=== PATIENT | female | born 1980 | race Caucasian/White ===

== ENCOUNTER 2017-07-13 13:46 | Emergency (ER) | payer MEDICARE, MEDICAID ==
[2017-07-13] MEDS ORDERED: Sodium Chloride 0.9% 10 ML Syringe FLUSH PRN (14:52)
[2017-07-13] MEDS ORDERED: Sodium Chloride 0.9% 1,000 ML IV ONE (14:57)
[2017-07-13] MEDS ORDERED: Iopamidol 755 Mg/ML 100 ML Bottle IV ONE (15:27)
[2017-07-13 19:02] VITALS: BP 125/80
--- NOTE | 2017-07-17 13:38 | ER ---
DATE SEEN: 07/13/2017 TIME SEEN: The patient was seen at 1425 hours. HISTORY OF PRESENT ILLNESS: She started Septra on 07/10/2017, for a kidney infection. She has been sick on and off for the last few weeks for a urinary tract infection. Used [id number] medicines which did not help her. She now notes she has 5/10 discomfort. She feels that the symptoms are worse having used Septra. She denies fever. She has mild flank discomfort bilaterally. She is a 3, para 3-0-0-3. PREVIOUS SURGERIES: Appendectomy, cholecystectomy, C-sections, hysterectomy with 1 oophorectomy, neck surgery had disk disease, umbilical hernia surgery without mesh. SOCIAL HISTORY: She smoked half a pack a day for 9 years and mild chronic obstructive lung disease. Denies alcohol or illicit drugs. REVIEW OF SYSTEMS: Otherwise negative. ALLERGIES: Codeine, cephalexin, cortisone. The patient denies any nausea, vomiting, lip swelling, shortness of breath, coughing, chest pain, irregular heartbeat, diaphoresis after having taken the TMP/SMX (Septra). She actually noticed she had a headache. Her ears ached worse, mild congestion in her ears, eustachian tube discomfort/ear discomfort, after she took the medicine. She felt slight fullness in her face. PHYSICAL EXAMINATION: VITAL SIGNS: Blood pressure 123/85, heart rate 86, respirations 14, oxygen saturation 100%. HEENT: TMs, mild dullness. No retraction. Pharynx without erythema. Turbinates not enlarged. No shiners noted. NECK: Supple. No cervical adenopathy. LUNGS: Clear to auscultation. HEART: S1, S2. No murmur. ABDOMEN: Soft. No guarding. No abdominal discomfort. Bowel sounds present. No CVA percussion tenderness. EXTREMITIES: Without abnormality. SKIN: No rash noted. Per [facility] article in the last 3 months, summary regarding penicillin allergies, it is noted that the patient can have Jarisch-Herxheimer reactions from the medications that are not particularly allergic reaction, but the patient feels markedly worse. It can happen with sulfa drugs. ASSESSMENT/PLAN: 1. 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 Discontinue the sulfa. Start Cipro 1 tablet b.i.d. 500 mg for 3 days. 2. No evidence for pyelonephritis. 3. History of cholecystectomy, appendectomy, C-sections, hysterectomy with 1 oophorectomy, neck surgery, and umbilical hernia repair without mesh surgery. 4. Smokes half a pack a day, 9-pack-year smoking total. /[id number] LS/MODL ADDENDUM: Because of the patient's bizarre symptoms, we thought that perhaps she might have renal stones because she had flank pain. CAT scan of the abdomen was performed and it was unremarkable. No abnormalities demonstrated. OTHER LABORATORY FINDINGS: White count 10,400, PMNs 74, lymphocytes 20, hemoglobin 15.6, the latter slightly increased probably secondary to smoking. Complete metabolic panel normal except for sodium low at 133, etiology is indeterminate unless she restricts her salt diet, but I did not ask her about this. Potassium 4.1, chloride 103, bicarb 21, BUN/creatinine ratio 18.8, creatinine 0.8, and BUN 15. C-reactive protein mild elevation at 1.3. Urine, moderate bacteria. ASSESSMENT: Urinary tract infection. /[id number] LS/MODL
== END 2017-07-13 19:00 | disposition home or self-care (01) ==
LOC: FB.ED 13:46
DX: N39.0 Urinary tract infection, site not specified (principal); F17.210 Nicotine dependence, cigarettes, uncomplicated; Z90.49 Acquired absence of other specified parts of digestive tract; Z90.710 Acquired absence of both cervix and uterus; Z88.8 Allergy status to other drugs, medicaments and biological substances; Z88.5 Allergy status to narcotic agent
CPT/HCPCS: 36415; 74177; 80053; 81001; 85025; 86140; 87040; 87086; 96360; 99284; J7040; J7050; Q9967; 99283

== ENCOUNTER 2017-12-17 11:18 | Emergency (ER) | payer MEDICARE, MEDICAID ==
[2017-12-17] MEDS ORDERED: HYDROmorphone 2 MG/ML SDV IM ONE (11:42)
[2017-12-17] MEDS ORDERED: Ondansetron 8 MG Tab.DIS PO ONE (11:42)
[2017-12-17] MEDS ORDERED: Ketorolac 30 MG/ML SDV IM ONE (11:51)
[2017-12-17] MEDS ORDERED: diphenhydrAMINE 50 MG Cap PO ONE (11:52)
[2017-12-17 20:18] VITALS: BP 106/61
--- NOTE | 2017-12-20 09:51 | ER ---
DATE SEEN: 12/17/2017 HISTORY OF PRESENT ILLNESS: This 37-year-old woman has chronic low back pain, had onset of back pain in October, was noted to have MRI with a "L5-S1" abnormality (On review of the new data, it was L4-L5 - the patient was mistaken, it was L4- L5 level). She had a herniated disk and was to see Dr. Aggarwal on 12/25/2017 for consideration of possible surgical treatment. She has seen Dr. Aggarwal in the past. Today, the back pain came on at 0600 hours, and it was so bad she had to crawl to the bathroom. She could not walk because it was so painful. " It is excruciating,"... 08/13 pain. She noted that she spontaneously experienced a herniated disk 6 months ago. There was no unusual activity or event that precipitated the back pain now. She notes also, in the last several months, she has had progressive decrease of control in her bladder. She has had urgency today. She had been seen in October in the [place] ER. An MRI was performed, and she had a herniated disk at L4-L5 level. She was referred to the [facility] and she has appointment to see Dr. Aggarwal on 12/25/2017 for consideration of back surgery. She is overweight, 84.82 kg. PREVIOUS SURGERY: , full-term infant. ALLERGIES: Codeine, Keflex, and cortisone. CURRENT MEDICATIONS: 1. Gabapentin 100 mg t.i.d. 2. Atarax 50 q.i.d. 3. Pramipexole (Mirapex for restless legs) 0.25 mg at bedtime. REVIEW OF SYSTEMS: Negative, except for noted regarding back pain and overweight. No change in her urinary incontinence. She has occasional leaking of urine, but only with stress incontinence. PHYSICAL EXAMINATION: VITAL SIGNS: Blood pressure 129/67, heart rate 92, respirations 18, oxygen saturation 99%, and temperature is 36.9 degrees centigrade. GENERAL: This overweight woman is in extreme pain. She is lying on her side in a position, and she is groaning, she does not want to move, as she is having too much pain to even get up and even sit up. HEENT: PERRLA intact. She has good response of pupils. TMs negative. Pharynx without abnormality. NECK: No thyromegaly or masses in the neck. No cervical adenopathy. LUNGS: Clear without rales, rhonchi, or wheezes. HEART: S1, S2. No murmur. No irregular rate and rhythm. ABDOMEN: Soft. No guarding. No abdominal discomfort. She has marked increased abdominal girth. No CVA percussion tenderness. She has marked pain in lumbar through sacral area. No scars noted. EXTREMITIES: Straight leg raise not even possible because of severe pain. Any movement of the legs will cause severe pain, more notable on the left side compared to the right side. She notes she has more right pain now than she had before, that is new. IMAGING DATA: MRI was obtained and demonstrated no change from the previously documented L4-L5 left-sided disk herniation. She has facet degeneration, hypertrophic changes at L4-L5. Otherwise, she has minor facet changes at L3-L4, and there is intervertebral disk loss L2-L3 and L1-L2. Mild neural foraminal narrowing at L2-L3. EMERGENCY ROOM COURSE: The patient's status was discussed with Dr. Lao, the neurosurgeon at [facility], and he relates, as long she can walk and her only problem is pain, that he would not entertain any emergent neurosurgery intervention; however, he noted when patients have weakness, it does become emergency. Presently she does not have any weakness. He stated he likes to see the patient in close proximity to onset of the back pain, so the patient can have arrangements for pain therapy. Since he, Dr Thomason, is a [facility], and is not available for clinical followups. Consequently, I spoke to the staff and Harry, the assistant clinical director, made arrangements for the patient to get into the clinic earlier - in [address] Jc. Harry was very gracious to make this arrangement for Rhea. Rhea is gratified. She is dismissed with Percocet 7.5/325 mg 1 tablet q.4 hours p.r.n. pain. Rhea was planning to have some admission and/or surgical intervention today. I have advised her that probably we would not admit her unless we had other signs that warrant, and perhaps if she had those sign, she would be transferred to [place]. Rhea was advise she did not have the signs to warrant admission. She did have normal reflexes. No sensory losses to lower extremities, no weakness in lower extremities. She is able to walk with difficulty and ataxia. To reiterate back exam, she has marked pain in the lumbar area. Any motion of leg causes pain. She is able to stand with marked difficulty, after she had pain medicine. She did not fall. She used a walker. She says she has a walker at home. She has good strength in the lower extremities. ASSESSMENT: 1. REcurrent pain of L4-L5 herniated disk with facet arthritis, hypertrophy. 2. Marked obesity. DIAGNOSES: Chronic low back pain and . Allergies: Codeine, cephalexin, and cortisone. The patient's appointment arranged at [place], , 12/19/2017. At 1130 hours, she should be there for x-rays, and at 1200 hours, she has an appointment. Telephone number for that appointment is [phone]. If she has any question, she should call the back clinic. /[id number] MADIE/HALIE PITT
== END 2017-12-17 17:45 | disposition home or self-care (01) ==
LOC: FB.ED 11:18
DX: M51.26 Other intervertebral disc displacement, lumbar region (principal); M46.96 Unspecified inflammatory spondylopathy, lumbar region; E66.9 Obesity, unspecified; Z88.5 Allergy status to narcotic agent; Z88.8 Allergy status to other drugs, medicaments and biological substances; Z88.1 Allergy status to other antibiotic agents
CPT/HCPCS: 72148; 96372; 96374; 99284; A9270; J1170; J1885

== ENCOUNTER 2018-04-23 11:16 | Emergency (ER) | payer MEDICARE, MEDICAID ==
[2018-04-23] MEDS: Ketorolac 60 MG/2 ML SDV IM ONE (12:05)
--- NOTE | 2018-04-23 13:10 | EDM.PDOC ---
ED HPI GENERAL MEDICAL PROBLEM - General Chief Complaint: Back Pain or Injury Stated Complaint: BACK AND LEG PAIN,LEGS GOING NUMB Time Seen by Provider: 04/23/18 11:30 Source of Information: Reports: Patient History Limitations: Reports: No Limitations - History of Present Illness INITIAL COMMENTS - FREE TEXT/NARRATIVE: c/o LBP LBP x 13y, had l-spine surgery 12/22 in [place] without change in symptoms not seen PCP Ciarra Luque in 2m as per pt, [facility]MP indicates a fill of 90 tabs of gabapentin 100 mg form Ciarra Luque 04/21 and a fill of 10 tabs of tramadol 50 mg on 04/15 pt says she has inc'd pain x 1d, exam nonspecific and nonlocalizing, has chronic pain and numb and tingling in both LEs x yrs, no acute change not taking APAP or NSAIDs, is taking gabapentin and Mirapex, says she has a muscle relaxer at home but not on her med list and she does not remember the name has no apt coming up with Ciarra back pain Pain Score (Numeric/FACES): 10 - Related Data Allergies Allergy/AdvReac Type Severity Reaction Status Date / Time codeine Allergy Intermediate Chest Pain Verified 04/23/18 12:33 cephalexin monohydrate Allergy Cannot Verified 04/23/18 12:33 [From Keflex] Remember cortisone [Cortisone] Allergy Vomiting Verified 04/23/18 12:33 Home Meds: Home Meds Gabapentin [Neurontin] 100 mg PO TID 12/17/17 [History] Pramipexole [Mirapex] 0.25 mg PO BEDTIME 12/17/17 [History] Past Medical History - Past Health History Medical/Surgical History: Denies 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: - Infectious Disease History Infectious Disease History: Reports: Chicken Pox, Shingles - Past Surgical History GI Surgical History: Reports: Appendectomy, Cholecystectomy, Hernia, Abdominal Female Surgical History: Reports: Section, Hysterectomy Musculoskeletal Surgical History: Reports: Other (See Below) Other Musculoskeletal Surgeries/Procedures:: herniated disks Social & Family History - Family History Cardiac: Reports: Hypertension Neurological: Reports: Alzheimers Disease, CVA, Dementia Oncologic: Reports: Other (See Below) Other Oncologic Family History: does not know cancer type - Caffeine Use Caffeine Use: Reports: Soda ED ROS GENERAL - Review of Systems Review Of Systems: See Below Constitutional: Reports: No Symptoms HEENT: Reports: No Symptoms Respiratory: Reports: No Symptoms Cardiovascular: Reports: No Symptoms Endocrine: Reports: No Symptoms GI/Abdominal: Reports: No Symptoms : Reports: No Symptoms Musculoskeletal: Reports: Back Pain, Other (has had neck surgery in the past) Skin: Reports: No Symptoms Neurological: Reports: No Symptoms Psychiatric: Reports: No Symptoms Hematologic/Lymphatic: Reports: No Symptoms Immunologic: Reports: No Symptoms ED EXAM,LOWER BACK PAIN/INJURY - Physical Exam Exam: See Below Exam Limited By: No Limitations General Appearance: Alert, WD/WN, Mild Distress Head: Atraumatic, Normocephalic Neck: Normal Inspection, Supple, Non-Tender, Full Range of Motion Respiratory/Chest: No Respiratory Distress, Lungs Clear, Normal Breath Sounds, No Accessory Muscle Use, Chest Non-Tender Cardiovascular: Regular Rate, Rhythm, No Edema, No Murmur GI/Abdominal: Soft, Non-Tender, No Distention Back Exam: Normal Inspection, Other (sitting stiffly, healing 3m aged scar a lower l-spine, 1+ tender greatest at R SI joint, R iliac crest and upper l-spine , no spasm, 2+ patella DTR b/l, great toe extension 5/5, LT intact, 2+ DP pulses b/l) Skin Exam: Warm, Dry, Intact, Normal Color, No Rash Lymphatic: No Adenopathy Course - Vital Signs Last Recorded V/S: Last Vital Signs Temp 36.6 C 04/23/18 11:20 Pulse 81 04/23/18 11:20 Resp 18 04/23/18 11:20 BP 130/65 04/23/18 11:20 Pulse Ox 98 04/23/18 11:20 - Orders/Labs/Meds Meds: Medications Discontinued Medications Generic Name Dose Route Start Last Admin Trade Name Freq PRN Reason Stop Dose Admin Ketorolac Tromethamine 60 mg 04/23/18 11:54 04/23/18 12:05 Toradol IM 04/23/18 11:55 60 mg ONETIME ONE Administration Departure - Departure Time of Disposition: 13:10 Disposition: Home, Self-Care 01 Condition: Good Clinical Impression: Chronic low back pain - Discharge Information Instructions: Chronic Back Pain Referrals: Michelle Luque NP [Primary Care Provider] - Additional Instructions: Continue gabapentin and Mirapex. Use heat for 10 minutes evry 2 ours as needed. Sleep on a firm mattress. Take ibuprofen 200 mg 3 tabs and acetaminophen 325 mg 2 tabs 4 times a day for 1 week. See Ciarra Luque in the next several days.
[2018-04-23 13:31] VITALS: BP 120/57
== END 2018-04-23 13:20 | disposition home or self-care (01) ==
LOC: FB.ED 11:16
DX: G89.29 Other chronic pain (principal); M54.5 Low back pain; Z88.5 Allergy status to narcotic agent; Z88.1 Allergy status to other antibiotic agents; Z79.899 Other long term (current) drug therapy; Z98.890 Other specified postprocedural states
CPT/HCPCS: 96372; 99283; J1885

== ENCOUNTER 2019-09-04 20:16 | Emergency (ER) | payer MEDICARE, MEDICAID ==
--- NOTE | 2019-09-04 20:47 | EDM.PDOC ---
ED HPI GENERAL MEDICAL PROBLEM - General Chief Complaint: Back Pain or Injury Stated Complaint: back pain Time Seen by Provider: 09/04/19 20:45 Source of Information: Reports: Patient History Limitations: Reports: No Limitations - History of Present Illness INITIAL COMMENTS - FREE TEXT/NARRATIVE: 38-year-old female who reports that she was picking up her 4-year-old son while bending over and heard and felt a pop in her lower back and had immediate pain in the area that caused her to go to the floor and she felt like she might pass out with the pain. She did not pass out. She was able to get up off of the floor and has been able to walk around but has had continued pain in her lower back that seems to radiate up into her upper back and neck but also seems to radiate down both legs. She has a history of chronic back pain and has had episodes where "her back went out" like this in the past but she has not had any episodes for the past 1-1/2-2 years. She apparently went to work tonight and was sent here by her boss because of the amount of pain that she was having. She does feel some numbness and tingling going down her legs but this is also something that she has had the past associated with her back "going out ". She has had no problems urinating. She has had no bowel incontinence. She had no antecedent symptoms other than a cold last week that has and resolving. No fevers or chills. No abdominal pain. She rates the pain in her back as a 9/ 10 at present. She reports the pain goes up to a 10/10 when she moves her back. There are no other associated signs or symptoms. There are no other modifying factors. 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: Reports: Other (see below) (Nothing) - Related Data Allergies Allergy/AdvReac Type Severity Reaction Status Date / Time codeine Allergy Intermediate Chest Pain Verified 04/23/18 12:33 cephalexin monohydrate Allergy Cannot Verified 04/23/18 12:33 [From Keflex] Remember cortisone [Cortisone] Allergy Vomiting Verified 04/23/18 12:33 Home Meds: Home Meds Pramipexole [Mirapex] 0.25 mg PO BEDTIME 12/17/17 [History] Cyclobenzaprine [Flexeril] 10 mg PO TID PRN #15 tab 09/04/19 [Rx] Hydrocodone/Acetaminophen [Cleveland 5-325 Tablet] 1 - 2 tab PO Q6H PRN #12 tablet 09/04/19 [Rx] Past Medical History Musculoskeletal History: Reports: Back Pain, Chronic Neurological History: Reports: Other (See Below) Other Neuro History: Restless leg syndrome. 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.) ED ROS GENERAL - Review of Systems Review Of Systems: See Below Constitutional: Reports: No Symptoms HEENT: Reports: Other (Resolving nasal congestion) Respiratory: Reports: Cough (Resolving cough) Cardiovascular: Reports: No Symptoms GI/Abdominal: Reports: No Symptoms : Reports: No Symptoms Musculoskeletal: Reports: Back Pain, Leg Pain Skin: Reports: No Symptoms Neurological: Reports: Numbness (In both legs which has occurred in the past with these episodes) Hematologic/Lymphatic: Reports: No Symptoms Immunologic: Reports: No Symptoms ED EXAM,LOWER BACK PAIN/INJURY - Physical Exam Exam: See Below Exam Limited By: No Limitations General Appearance: Alert, WD/WN, Moderate Distress, Other (She does appear to be in some pain but she is awake, alert and appropriate.) Eye Exam: Bilateral Eye: EOMI, Normal Inspection, PERRL Ears: Normal External Exam, Hearing Grossly Normal Nose: Normal Inspection, Normal Mucosa, No Blood Throat/Mouth: Normal Inspection, Normal Oropharynx, Normal Voice, No Airway Compromise Head: Atraumatic, Normocephalic Neck: Normal Inspection, Supple, Non-Tender, Full Range of Motion Respiratory/Chest: No Respiratory Distress, Lungs Clear, Normal Breath Sounds, No Accessory Muscle Use, Chest Non-Tender Cardiovascular: Normal Peripheral Pulses, Regular Rate, Rhythm, No Murmur GI/Abdominal: Normal Bowel Sounds, Soft, Non-Tender, Pelvis Stable, Other ( Protuberant) Extremities: Normal Inspection, Normal Range of Motion, Non-Tender, No Pedal Edema, Normal Capillary Refill Neurological: Alert, Normal Mood/Affect, Normal Dorsiflexion, CN II-XII Intact, Normal Plantar Flexion, No Motor/Sensory Deficits, Oriented x 3 Skin Exam: Warm, Dry, Intact, Normal Color, No Rash Course - Vital Signs Last Recorded V/S: Last Vital Signs Temp 36.8 C 09/04/19 20:25 Pulse 87 09/04/19 20:25 Resp 14 09/04/19 20:25 BP 118/67 09/04/19 20:25 Pulse Ox 99 09/04/19 20:25 - Orders/Labs/Meds Meds: Medications Discontinued Medications Generic Name Dose Route Start Last Admin Trade Name Freq PRN Reason Stop Dose Admin Hydrocodone Bitart/Acetaminophen 2 tab 09/04/19 21:08 09/04/19 21:15 Cleveland 325-5 Mg PO 09/04/19 21:09 2 tab ONETIME ONE Administration Diazepam 5 mg 09/04/19 21:08 09/04/19 21:16 Valium. PO 09/04/19 21:09 5 mg ONETIME ONE Administration Ketorolac Tromethamine 60 mg 09/04/19 21:08 09/04/19 21:16 Toradol IM 09/04/19 21:09 60 mg ONETIME ONE Administration - Re-Assessments/Exams Free Text/Narrative Re-Assessment/Exam: 09/04/19 21:05: Patient has fairly significant spasm in her lumbar paraspinous. She has had very similar episodes with her lumbar back in the past (albeit she reports that this seems to be more severe) but has not had one for close to 2 years she reports. She has no evidence of leg weakness. There is no bowel or bladder control problems. This appears to be an acute exacerbation of her chronic back pain. She was treated with Toradol 60 mg IM, hydrocodone 5/325 2 tablets by mouth and Valium 5 mg by mouth. I will provide her with prescriptions for Flexeril 10 mg and a small prescription of hydrocodone 5/325. She is to take ibuprofen for pain as well. I have given her a note for no work for the next 3 days. She should begin gentle back stretching tomorrow. She should ambulate as tolerated. Precautions and reasons to return to the emergency department were discussed with the patient prior to discharge. Departure - Departure Time of Disposition: 21:20 Disposition: Home, Self-Care 01 Condition: Good Clinical Impression: Lumbar paraspinal muscle spasm, Acute exacerbation of chronic low back pain - Discharge Information Prescriptions: Cyclobenzaprine [Flexeril] 10 mg PO TID PRN #15 tab PRN Reason: Muscle spasm or muscle pain Hydrocodone/Acetaminophen [C[place] 5-325 Tablet] 1 - 2 tab PO Q6H PRN #12 tablet PRN Reason: Moderate to severe pain Instructions: Acetaminophen; Hydrocodone tablets or capsules, Ketorolac injection, Acute Back Pain, Adult, Back Injury Prevention, [id number], Back Exercises, [id number], Chronic Back Pain, Sugi-[id number], Diazepam tablets Referrals: Michelle Luque MANAGER TRACK [Primary Care Provider] - Forms: ED Department Discharge, ED Return to Work/School Form Additional Instructions: You appear to have had an acute exacerbation of your chronic back pain when you pick her child up this morning. You have quite a bit of muscle spasm in your entire back and I think this is causing a bit of your pain. You do not appear to have any leg weakness at this time. This does seem to be similar to your previous episodes were your "back went out". You should ambulate as tolerated. Begin gentle stretching of your back tomorrow. Avoid any lifting, bending, pushing or pulling for the next 3 days. I have given you a note off of work for the next 3 days. You may take ibuprofen 800 mg by mouth every 8 hours as needed for pain. Medication as prescribed (hydrocodone 5/325, Flexeril 10 mg). Follow- up with your primary provider, Kiera Louise, this next week. Back to the emergency department for bowel or bladder control problems, fever, leg weakness , abdominal pain or any other concerning sign or symptom.
[2019-09-04 20:48] VITALS: BP 118/67; PULSE 87
[2019-09-04] MEDS: Acetaminophen/HYDROcodone 325-5 MG Tab PO ONE (21:15)
[2019-09-04] MEDS: Ketorolac 60 MG/2 ML SDV IM ONE (21:16)
[2019-09-04] MEDS: Diazepam 5 MG Tab PO ONE (21:16)
== END 2019-09-04 21:45 | disposition home or self-care (01) ==
LOC: FB.ED 20:16
DX: M62.830 Muscle spasm of back (principal); G89.29 Other chronic pain; M54.5 Low back pain; F17.200 Nicotine dependence, unspecified, uncomplicated; E66.9 Obesity, unspecified; Z88.5 Allergy status to narcotic agent; Z88.1 Allergy status to other antibiotic agents; Z88.8 Allergy status to other drugs, medicaments and biological substances; X50.1XXA Overexertion from prolonged static or awkward postures, initial encounter
CPT/HCPCS: 96372; 99283; A9270; J1885

== ENCOUNTER 2021-07-17 13:17 | Emergency (ER) | payer MEDICARE, MEDICAID ==
[2021-07-17 14:18] VITALS: BP 130/86; PULSE 65
--- NOTE | 2021-07-17 14:24 | EDM.PDOC ---
ED HPI GENERAL MEDICAL PROBLEM - General Chief Complaint: Cardiovascular Problem Stated Complaint: CHEST PAIN Time Seen by Provider: 07/17/21 13:25 Source of Information: Reports: Patient History Limitations: Reports: No Limitations - History of Present Illness INITIAL COMMENTS - FREE TEXT/NARRATIVE: Patient presented to the ED because of right sided chest pain which started at about 0900. The pain is sharp, pleuritic, without any associated nausea, vomiting, dyspnea or diaphoresis. There is no fever, chills, cough/cold. Right Chest Pain Score (Numeric/FACES): 6 - Related Data Allergies Allergy/AdvReac Type Severity Reaction Status Date / Time codeine Allergy Intermediate Chest Pain Verified 04/23/18 12:33 cephalexin monohydrate Allergy Cannot Verified 04/23/18 12:33 [From Keflex] Remember cortisone [Cortisone] Allergy Vomiting Verified 04/23/18 12:33 Home Meds: Home Meds Pramipexole [Mirapex] 0.25 mg PO BEDTIME 12/17/17 [History] Cyclobenzaprine [Flexeril] 10 mg PO TID PRN #15 tab 09/04/19 [Rx] Hydrocodone/Acetaminophen [[place] 5-325 Tablet] 1 - 2 tab PO Q6H PRN #12 tablet 09/04/19 [Rx] Past Medical History - Past Health History Medical/Surgical History: Denies Medical/Surgical History Cardiovascular History: Reports: Arrhythmia 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.) ED ROS GENERAL - Review of Systems Review Of Systems: See Below Constitutional: Reports: No Symptoms HEENT: Reports: No Symptoms Respiratory: Reports: No Symptoms Cardiovascular: Reports: Chest Pain Endocrine: Reports: No Symptoms GI/Abdominal: Reports: No Symptoms : Reports: No Symptoms Musculoskeletal: Reports: No Symptoms Skin: Reports: No Symptoms Neurological: Reports: No Symptoms Psychiatric: Reports: No Symptoms ED EXAM, GENERAL - Physical Exam Exam: See Below Exam Limited By: No Limitations General Appearance: Alert, No Apparent Distress Ears: Normal External Exam, Normal Canal Nose: Normal Inspection, Normal Mucosa, No Blood Throat/Mouth: Normal Inspection, Normal Lips, Normal Teeth Head: Atraumatic, Normocephalic Neck: Normal Inspection, Supple, Non-Tender, Full Range of Motion Respiratory/Chest: No Respiratory Distress, Lungs Clear, Normal Breath Sounds Cardiovascular: Normal Peripheral Pulses, Regular Rate, Rhythm, No Edema, No Gallop GI/Abdominal: Normal Bowel Sounds, Soft, Non-Tender, No Organomegaly Extremities: Normal Inspection, Normal Range of Motion, Non-Tender Neurological: Alert, Oriented, CN II-XII Intact Psychiatric: Normal Affect, Normal Mood Skin Exam: Warm #1 Interpretation EKG Date: 07/17/21 Time: 13:20 Rhythm: NSR Rate (Beats/Min): 56 [place]: Normal P-Wave: Present QRS: Normal ST-T: Normal QT: Normal TN/PQ Interval: 120 Comparison: No Change EKG Interpretation Comments: NSR Course - Vital Signs Text/Narrative:: Lab/EKG result was reviewed and discussed with patient Last Recorded V/S: Last Vital Signs Temp 36.8 C 07/17/21 13:18 Pulse 65 07/17/21 13:18 Resp 24 H 07/17/21 13:18 BP 130/86 07/17/21 13:18 Pulse Ox 98 07/17/21 13:18 - Orders/Labs/Meds Labs: Laboratory Tests 07/17/21 Range/Units 13:40 Troponin I < 4.0 L (4.0-60.3) pg/mL Departure - Departure Time of Disposition: 14:25 Disposition: Home, Self-Care 01 Condition: Good Clinical Impression: Atypical chest pain Instructions: Nonspecific Chest Pain, Adult Referrals: Michelle Luque NP [Primary Care Provider] - Forms: ED Department Discharge Additional Instructions: Please read discharge instructions on atypical chest pain You may take aleve 2 tablets twice daily for 1 week Follow up as needed Sepsis Event Note (ED) - Evaluation Sepsis Screening Result: No Definite Risk
== END 2021-07-17 14:30 | disposition home or self-care (01) ==
LOC: FB.ED 13:17
DX: R07.89 Other chest pain (principal); E66.9 Obesity, unspecified; Z88.5 Allergy status to narcotic agent; Z88.1 Allergy status to other antibiotic agents; Z68.37 Body mass index [BMI] 37.0-37.9, adult; Z72.0 Tobacco use
CPT/HCPCS: 36415; 84484; 93005; 99285-25

== ENCOUNTER 2021-08-13 14:24 | Emergency (ER) | payer MEDICARE, MEDICAID ==
--- NOTE | 2021-08-13 14:53 | EDM.PDOC ---
ED HPI GENERAL MEDICAL PROBLEM - General Chief Complaint: ENT Problem Stated Complaint: LOST VOICE, EAR ACHE Time Seen by Provider: 08/13/21 14:35 Source of Information: Reports: Patient, Old Records, RN History Limitations: Reports: No Limitations - History of Present Illness INITIAL COMMENTS - FREE TEXT/NARRATIVE: 40 yo female presents with hoarseness and mild bilateral ear pain for a couple weeks. No fever. Nasal discharge is often yellow. Is a smoker. Went to clinic and had a negative Covid test. Also has tingling of the fingers of her L hand excluding the 5th finger that radiates up her forearm. Onset: Gradual Duration: Week(s):, Constant Location: Reports: Face (nose), Neck (throat), Upper Extremity, Left (numbness) Quality: Reports: Other (numbness of L hand) Severity: Moderate (L hand numbness) Improves with: Reports: None Worsens with: Reports: Other (? 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) - Related Data Allergies Allergy/AdvReac Type Severity Reaction Status Date / Time codeine Allergy Intermediate Chest Pain Verified 04/23/18 12:33 cephalexin monohydrate Allergy Cannot Verified 04/23/18 12:33 [From Keflex] Remember cortisone [Cortisone] Allergy Vomiting Verified 04/23/18 12:33 Home Meds: Home Meds Pramipexole [Mirapex] 0.25 mg PO BEDTIME 12/17/17 [History] Cyclobenzaprine [Flexeril] 10 mg PO TID PRN #15 tab 09/04/19 [Rx] Hydrocodone/Acetaminophen [[place] 5-325 Tablet] 1 - 2 tab PO Q6H PRN #12 tablet 09/04/19 [Rx] Amoxicillin [Amoxil] 875 mg PO Q12HR #15 tab 08/13/21 [Rx] Past Medical History - Past Health History Medical/Surgical History: Denies Medical/Surgical History Cardiovascular History: Reports: Arrhythmia 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 Denies: Ear Discharge, Eye Discharge, Throat Pain Respiratory: Reports: Cough. Denies: Shortness of Breath, Sputum Cardiovascular: Reports: No Symptoms GI/Abdominal: Reports: No Symptoms Skin: Reports: No Symptoms Neurological: Reports: No Symptoms ED EXAM, ENT - Physical Exam Exam: See Below Exam Limited By: No Limitations General Appearance: Alert, WD/WN, No Apparent Distress Eye Exam: Bilateral Eye: Normal Inspection Ears: Normal External Exam, Normal Canal, TM Erythema (bilaterally to the anterior most portion of both TM's). No: Hearing Grossly Normal, Normal TMs Nose: Clear Rhinorrhea, Other (nasal congestion) Mouth/Throat: Normal Inspection, Normal Lips, Normal Oropharynx, Other (raspy voice) Head: Atraumatic, Normocephalic Neck: Normal Inspection Respiratory/Chest: No Respiratory Distress, Lungs Clear, Normal Breath Sounds, No Accessory Muscle Use, Other (cough present) Cardiovascular: Regular Rate, Rhythm, No Edema Back: Normal Inspection Extremities: Normal Inspection, Normal Range of Motion, Non-Tender, No Pedal Edema. No: Pedal Edema, Arnold's Sign Neurological: Alert, Oriented, CN II-XII Intact, Normal Cognition, No Motor/Sensory Deficits Psychiatric: Normal Affect, Normal Mood Skin: Warm, Dry, Intact, Normal Color, No Rash Departure - Departure Time of Disposition: 15:05 Disposition: Home, Self-Care 01 Condition: Fair Clinical Impression: Left carpal tunnel syndrome Acute sinusitis Qualifiers: Sinusitis location: unspecified location Recurrence: non-recurrent Qualified Code(s): J01.90 - Acute sinusitis, unspecified - Discharge Information *PRESCRIPTION DRUG MONITORING PROGRAM REVIEWED*: Not Applicable *COPY OF PRESCRIPTION DRUG MONITORING REPORT IN PATIENT JACQUELINE: Not Applicable Prescriptions: Amoxicillin [Amoxil] 875 mg PO Q12HR #15 tab Instructions: Sinusitis, Adult, [id number], Carpal Tunnel Syndrome Referrals: Michelle Luque NP [Primary Care Provider] - Forms: ED Department Discharge Additional Instructions: Wear your splint when working with your hands and when sleeping. Take the amoxicillin as directed until gone. Recheck with your provider in 7-10 days. Smoking less or quitting will help you resolve your current sinus issue and reduce the risk of recurrence.
[2021-08-13 15:09] VITALS: BP 124/81; PULSE 83
== END 2021-08-13 15:15 | disposition home or self-care (01) ==
LOC: FB.ED 14:24
DX: J01.90 Acute sinusitis, unspecified (principal); G56.02 Carpal tunnel syndrome, left upper limb; F17.200 Nicotine dependence, unspecified, uncomplicated; E66.9 Obesity, unspecified; Z68.37 Body mass index [BMI] 37.0-37.9, adult; Z88.5 Allergy status to narcotic agent; Z88.1 Allergy status to other antibiotic agents; Z88.8 Allergy status to other drugs, medicaments and biological substances
CPT/HCPCS: 99283

== ENCOUNTER 2021-08-13 17:38 | Emergency (ER) | payer MEDICARE, MEDICAID ==
[2021-08-13] MEDS ORDERED: Ketorolac 30 MG/ML SDV IM ONE (17:43)
[2021-08-13] MEDS ORDERED: Acetaminophen 500 MG Tab PO ONE (17:43)
--- NOTE | 2021-08-13 17:49 | EDM.PDOC ---
ED HPI GENERAL MEDICAL PROBLEM - General Chief Complaint: Respiratory Problem Stated Complaint: ALLERGIC REACTION Time Seen by Provider: 08/13/21 17:40 Source of Information: Reports: Patient, Old Records, RN History Limitations: Reports: No Limitations - History of Present Illness INITIAL COMMENTS - FREE TEXT/NARRATIVE: 40 yo female smoker was seen here recently for OM and sinusitis. After leaving here she proceeded to smoke even though she was advised not to. She later developed sharp chest pain associated with breathing. No tx for this pain before arrival. Onset: Today, Sudden Onset Date: 08/13/21 Duration: Minutes:, Constant Location: Reports: Chest Quality: Reports: Sharp, Stabbing Severity: Severe Improves with: Reports: Other (shallow breathing) Worsens with: Reports: Other (deep breathing) Context: Reports: Other (see HPI) Associated Symptoms: Reports: Chest Pain. 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) (none) - Related Data Allergies Allergy/AdvReac Type Severity Reaction Status Date / Time codeine Allergy Intermediate Chest Pain Verified 04/23/18 12:33 cephalexin monohydrate Allergy Cannot Verified 04/23/18 12:33 [From Keflex] Remember cortisone [Cortisone] Allergy Vomiting Verified 04/23/18 12:33 Home Meds: Home Meds Pramipexole [Mirapex] 0.25 mg PO BEDTIME 12/17/17 [History] Cyclobenzaprine [Flexeril] 10 mg PO TID PRN #15 tab 09/04/19 [Rx] Hydrocodone/Acetaminophen [[place] 5-325 Tablet] 1 - 2 tab PO Q6H PRN #12 tablet 09/04/19 [Rx] Amoxicillin [Amoxil] 875 mg PO Q12HR #15 tab 08/13/21 [Rx] Past Medical History - Past Health History Medical/Surgical History: Denies Medical/Surgical History Cardiovascular History: Reports: Arrhythmia 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 GENERAL - Review of Systems Review Of Systems: See Below Constitutional: Reports: No Symptoms HEENT: Reports: No Symptoms Respiratory: Reports: Pleuritic Chest Pain Cardiovascular: Reports: No Symptoms GI/Abdominal: Reports: No Symptoms Musculoskeletal: Reports: No Symptoms Skin: Reports: No Symptoms ED EXAM, GENERAL - Physical Exam Exam: See Below Exam Limited By: No Limitations General Appearance: Alert, WD/WN, Anxious, Mild Distress Eye Exam: Bilateral Eye: EOMI, Normal Inspection Ears: Normal External Exam, Normal Canal, Hearing Grossly Normal, Normal TMs Ear Exam: Bilateral Ear: Auricle Normal, Canal Normal, TM normal Nose: Normal Inspection, No Blood Throat/Mouth: Normal Inspection, Normal Lips, Normal Oropharynx, Normal Voice, No Airway Compromise Head: Atraumatic, Normocephalic Neck: Normal Inspection Respiratory/Chest: No Respiratory Distress, Lungs Clear, Normal Breath Sounds, No Accessory Muscle Use Cardiovascular: Regular Rate, Rhythm, No Edema. No: Tachycardia Extremities: Normal Inspection, Normal Range of Motion, Non-Tender, No Pedal Edema. No: Pedal Edema, Arnold's Sign Neurological: Alert, Oriented, CN II-XII Intact, Normal Cognition, No Motor/Sensory Deficits Psychiatric: Anxious Skin Exam: Warm, Dry, Intact, Normal Color, No Rash Course - Orders/Labs/Meds Meds: Medications Discontinued Medications Generic Name Dose Route Start Last Admin Trade Name Freq PRN Reason Stop Dose Admin Acetaminophen 1,000 mg 08/13/21 17:43 08/13/21 18:00 Acetaminophen 500 Mg Tab PO 08/13/21 17:44 1,000 mg ONETIME ONE Administration Ketorolac Tromethamine 30 mg 08/13/21 17:43 08/13/21 18:00 Ketorolac 30 Mg/Ml Sdv IM 08/13/21 17:44 30 mg ONETIME ONE Administration Departure - Departure Time of Disposition: 18:35 Disposition: Home, Self-Care 01 Condition: Fair Clinical Impression: Pleurisy - Discharge Information *PRESCRIPTION DRUG MONITORING PROGRAM REVIEWED*: Not Applicable *COPY OF PRESCRIPTION DRUG MONITORING REPORT IN PATIENT JACQUELINE: Not Applicable Instructions: Pleurisy, [id number] Forms: ED Department Discharge Additional Instructions: No smoking. Take Aleve 2 every 8 hrs with food and acetaminophen 1000 mg every 6 hrs as needed for pain relief. Stay on the meds prescribed during your last ER visit. See your doctor before the end of the week.
[2021-08-13 19:10] VITALS: BP 147/86; PULSE 110
== END 2021-08-13 18:44 | disposition home or self-care (01) ==
LOC: FB.ED 17:38
DX: R09.1 Pleurisy (principal); E66.9 Obesity, unspecified; Z68.37 Body mass index [BMI] 37.0-37.9, adult; Z88.5 Allergy status to narcotic agent; Z88.1 Allergy status to other antibiotic agents; Z88.8 Allergy status to other drugs, medicaments and biological substances
CPT/HCPCS: 96372; 99284; A9270; J1885

== ENCOUNTER 2021-12-09 05:11 | Emergency (ER) | payer MEDICARE, MEDICAID ==
[2021-12-09] MEDS ORDERED: Ketorolac 30 MG/ML SDV IM ONE (06:14)
[2021-12-09 07:42] VITALS: BP 102/51; PULSE 57
== END 2021-12-09 07:55 | disposition home or self-care (01) ==
LOC: FB.ED 05:11
DX: M54.16 Radiculopathy, lumbar region (principal); E66.9 Obesity, unspecified; Z68.38 Body mass index [BMI] 38.0-38.9, adult; Z88.5 Allergy status to narcotic agent; Z88.1 Allergy status to other antibiotic agents; Z88.8 Allergy status to other drugs, medicaments and biological substances
CPT/HCPCS: 36415; 72131; 80048; 84484; 85027; 86140; 93005; 96372; 99284; J1885; J3360

== ENCOUNTER 2022-03-12 13:59 | Emergency (ER) | payer MEDICARE, MEDICAID ==
[2022-03-12 14:08] VITALS: BP 127/85; PULSE 91
== END 2022-03-12 15:00 | disposition home or self-care (01) ==
LOC: FB.ED 13:59
DX: R07.2 Precordial pain (principal); R55 Syncope and collapse; E66.9 Obesity, unspecified; Z68.34 Body mass index [BMI] 34.0-34.9, adult; Z88.5 Allergy status to narcotic agent; Z88.1 Allergy status to other antibiotic agents; Z88.8 Allergy status to other drugs, medicaments and biological substances
CPT/HCPCS: 36415; 71045; 80053; 84484; 85025; 85379; 93005; 93010; 99282; 99285-25

== ENCOUNTER 2023-04-30 12:09 | Emergency (ER) | payer MEDICARE, MEDICAID ==
[2023-04-30] MEDS: Acetaminophen/HYDROcodone 325-5 MG Tab PO ONE (12:54)
[2023-04-30] MEDS: Ketorolac 30 MG/ML SDV IM ONE (12:56)
[2023-04-30] MEDS: Cyclobenzaprine 10 MG Tab PO ONE (12:57)
[2023-04-30] MEDS: Lidocaine 4% 1 each Patch TOP PRN (14:45)
[2023-04-30 16:12] VITALS: BP 107/72; PULSE 77
== END 2023-04-30 15:15 | disposition home or self-care (01) ==
LOC: FB.ED 12:09
DX: M54.50 Low back pain, unspecified (principal); F17.210 Nicotine dependence, cigarettes, uncomplicated; E66.9 Obesity, unspecified; Z68.38 Body mass index [BMI] 38.0-38.9, adult; Z88.5 Allergy status to narcotic agent; Z88.1 Allergy status to other antibiotic agents; Z79.899 Other long term (current) drug therapy; Z90.49 Acquired absence of other specified parts of digestive tract
CPT/HCPCS: 96372; 99283; A9270; J1885

== ENCOUNTER 2023-07-08 11:21 | Emergency (ER) | payer MEDICARE, MEDICAID ==
[2023-07-08] MEDS ORDERED: traMADol 50 MG Tab PO ONE (11:22)
[2023-07-08 11:43] VITALS: BP 117/75; PULSE 86
== END 2023-07-08 11:57 | disposition home or self-care (01) ==
LOC: FB.ED 11:21
DX: M25.511 Pain in right shoulder (principal); J45.909 Unspecified asthma, uncomplicated; E66.9 Obesity, unspecified; Z68.41 Body mass index [BMI] 40.0-44.9, adult; Z86.16 Personal history of COVID-19; Z88.1 Allergy status to other antibiotic agents; Z88.5 Allergy status to narcotic agent; Z72.0 Tobacco use
CPT/HCPCS: 99283; A9270

== ENCOUNTER 2023-09-23 17:41 | Emergency (ER) | payer MEDICARE, MEDICAID ==
[2023-09-23 18:39] LABS: BASOPHILS PERCENT AUTO 0.6 % (0.2-1.5); EOSINOPHILS ABSOLUTE AUTO 0.1 x10-3/uL (0.0-0.8); HEMATOCRIT 47.1 % (34.2-48.2); HEMOGLOBIN 15.9 g/dL (11.4-15.5); LYMPHOCYTES ABSOLUTE AUTO 2.2 x10-3/uL (1.0-4.4); LYMPHOCYTES PERCENT AUTO 27.8 % (18.4-52.1); MEAN CORPUSCULAR HEMOGLOBIN 29.7 pg (23.9-33.9); MEAN CORPUSCULAR HGB CONC 33.6 g/dL (31.9-34.8); MEAN CORPUSCULAR VOLUME 88.2 fL (76.7-100.5); MEAN PLATELET VOLUME 8.2 fL (7.1-12.4); MONOCYTES ABSOLUTE AUTO 0.5 x10-3/uL (0.3-1.0); MONOCYTES PERCENT AUTO 6.5 % (4.4-15.7); NEUTROPHILS PERCENT AUTO 64.1 % (30.8-76.2); PLATELET COUNT,PLT 280 x10(3)uL (151-488); RED BLOOD CELL COUNT 5.34 x10(6)uL (3.60-5.20); RED CELL DISTRIBUTION WIDTH 13.2 % (12.3-16.5); WHITE BLOOD CELL COUNT,WBC 7.8 x10-3/uL (3.0-10.3)
[2023-09-23 18:44] LABS: BLOOD UREA NITROGEN,BUN 15 mg/dL (7-18); BUN/CREATININE RATIO 16.7 (9-20); CALCIUM 8.9 mg/dL (8.6-10.2); CARBON DIOXIDE,CO2 30 mmol/L (21-32); CHLORIDE,CL 103 mmol/L (100-110); CREATININE 0.9 mg/dL (0.55-1.02); EST CRCL DRUG DOSING (CG) 63.09 mL/min; ESTIMATED GFR 81 mL/min (>60); GLUCOSE RANDOM 97 mg/dL (80-116); POTASSIUM,K 4.6 mmol/L (3.5-5.3); SODIUM,NA 138 mmol/L (135-145)
[2023-09-23 18:51] LABS: A/G RATIO 0.8; ALANINE AMINOTRANSFERASE,ALT 21 U/L (12-36); ALBUMIN 3.3 g/dL (3.5-5.2); ALKALINE PHOSPHATASE 113 IU/L (56-112); ASPARTATE AMNIOTRANSFERASE,AST 21 IU/L (5-25); BILIRUBIN TOTAL 0.4 mg/dL (0.1-1.3); MAGNESIUM 1.7 mg/dL (1.8-2.5); PROTEIN TOTAL,TP 7.3 g/dL (6.0-8.0)
[2023-09-23 18:58] LABS: PRO B-TYPE NATRIUR PEPT,BNPPRO 44 pg/mL (<=125)
[2023-09-23 19:00] LABS: TROPONIN I < 4.0 pg/mL (4.0-60.3)
[2023-09-23] MEDS: Metoclopramide 10 MG/2 ML SDV IVPUSH ONE (19:00)
[2023-09-23] MEDS: Sodium Chloride 0.9% 10 ML Syringe FLUSH PRN (19:00)
[2023-09-23 19:20] LABS: INFLUENZA A NAA NEGATIVE (NEGATIVE); INFLUENZA B NAA NEGATIVE (NEGATIVE); RESPIRATORY SYNCYTIAL VIR NAA NEGATIVE (NEGATIVE)
[2023-09-23 19:24] LABS: CORONAVIRUS COVID-19 NAA NEGATIVE (NEGATIVE)
[2023-09-23] MEDS: Iopamidol 755 Mg/ML 100 ML Bottle IV SCH (20:18)
[2023-09-23 22:12] VITALS: BP 138/89; PULSE 84
[2023-09-23] MEDS ORDERED: Pantoprazole 40 MG Tab.CR ONE (22:12)
[2023-09-23] MEDS: Pantoprazole 40 MG Tab.CR PO ONE (22:13)
== END 2023-09-23 22:17 | disposition home or self-care (01) ==
LOC: FB.ED 17:41
DX: K21.9 Gastro-esophageal reflux disease without esophagitis (principal); R51.9 Headache, unspecified; E66.9 Obesity, unspecified; J45.909 Unspecified asthma, uncomplicated; Z72.0 Tobacco use; Z88.1 Allergy status to other antibiotic agents; Z88.5 Allergy status to narcotic agent; Z68.39 Body mass index [BMI] 39.0-39.9, adult; Z88.8 Allergy status to other drugs, medicaments and biological substances; Z79.899 Other long term (current) drug therapy; Z86.16 Personal history of COVID-19; Z90.49 Acquired absence of other specified parts of digestive tract; Z20.822 Contact with and (suspected) exposure to COVID-19
CPT/HCPCS: 0241U; 36415; 71275; 80053; 83735; 83880; 84484; 85025; 85379; 93005; 96374; 99285; A9270; J2765; J3490; Q9967

== ENCOUNTER 2023-12-24 13:25 | Emergency (ER) | payer MEDICARE, MEDICAID ==
[2023-12-24] MEDS: Cyclobenzaprine 10 MG Tab PO ONE (14:14)
[2023-12-24] MEDS: Ketorolac 30 MG/ML SDV IM ONE (14:14)
[2023-12-24] MEDS: Alum Hydroxide/Mag Hydroxide 15 ML, Lidocaine 2% 15 ML PO ONE (14:14)
[2023-12-24] MEDS: Morphine 4 MG/ML VIAL IM ONE (14:15)
[2023-12-24 14:51] VITALS: BP 111/71; PULSE 75
== END 2023-12-24 15:00 | disposition home or self-care (01) ==
LOC: FB.ED 13:25
DX: M54.50 Low back pain, unspecified (principal); G89.29 Other chronic pain; M51.36 Other intervertebral disc degeneration, lumbar region; F17.210 Nicotine dependence, cigarettes, uncomplicated; E66.9 Obesity, unspecified; J45.909 Unspecified asthma, uncomplicated; Z86.16 Personal history of COVID-19; Z79.899 Other long term (current) drug therapy; Z88.1 Allergy status to other antibiotic agents; Z88.5 Allergy status to narcotic agent; Z88.8 Allergy status to other drugs, medicaments and biological substances
CPT/HCPCS: 96372; 99283; A9270; J1885; J2270

== ENCOUNTER 2024-10-07 09:39 | Emergency (ER) | payer MEDICARE, MEDICAID ==
[2024-10-07 10:06] VITALS: BP 125/75; PULSE 89
[2024-10-07] MEDS ORDERED: Acetaminophen/oxyCODONE 325-5 MG Tab PO STA (10:07)
[2024-10-07] MEDS: tiZANidine 4 MG Tab PO STA (10:18)
[2024-10-07] MEDS: Ketorolac 30 MG/ML SDV IM ONE (10:18)
== END 2024-10-07 11:25 | disposition home or self-care (01) ==
LOC: FB.ED 09:39
DX: M51.16 Intervertebral disc disorders with radiculopathy, lumbar region (principal); K21.9 Gastro-esophageal reflux disease without esophagitis; E66.9 Obesity, unspecified; Z68.41 Body mass index [BMI] 40.0-44.9, adult; Z86.16 Personal history of COVID-19; Z90.49 Acquired absence of other specified parts of digestive tract; F17.210 Nicotine dependence, cigarettes, uncomplicated; Z79.899 Other long term (current) drug therapy; Z88.5 Allergy status to narcotic agent; Z88.8 Allergy status to other drugs, medicaments and biological substances
CPT/HCPCS: 93005; 96372; 99283; A9270-GY; J1885

== ENCOUNTER 2024-10-09 14:50 | Emergency (ER) | payer MEDICARE, MEDICAID ==
[2024-10-09 15:44] LABS: BASOPHILS PERCENT AUTO 0.6 % (0.2-1.5); EOSINOPHILS ABSOLUTE AUTO 0.1 x10-3/uL (0.0-0.8); EOSINOPHILS PERCENT AUTO 1.5 % (0.6-8.1); HEMATOCRIT 43.9 % (34.2-48.2); HEMOGLOBIN 14.7 g/dL (11.4-15.5); LYMPHOCYTES ABSOLUTE AUTO 2.4 x10-3/uL (1.0-4.4); LYMPHOCYTES PERCENT AUTO 32.3 % (18.4-52.1); MEAN CORPUSCULAR HEMOGLOBIN 29.8 pg (23.9-33.9); MEAN CORPUSCULAR HGB CONC 33.5 g/dL (31.9-34.8); MEAN CORPUSCULAR VOLUME 88.9 fL (76.7-100.5); MEAN PLATELET VOLUME 7.9 fL (7.1-12.4); MONOCYTES ABSOLUTE AUTO 0.6 x10-3/uL (0.3-1.0); MONOCYTES PERCENT AUTO 7.5 % (4.4-15.7); NEUTROPHILS ABSOLUTE AUTO 4.4 x10-3/uL (1.5-6.3); NEUTROPHILS PERCENT AUTO 58.1 % (30.8-76.2); PLATELET COUNT,PLT 283 x10(3)uL (151-488); RED BLOOD CELL COUNT 4.94 x10(6)uL (3.60-5.20); RED CELL DISTRIBUTION WIDTH 12.9 % (12.3-16.5); WHITE BLOOD CELL COUNT,WBC 7.6 x10-3/uL (3.0-10.3)
[2024-10-09 15:46] LABS: BLOOD UREA NITROGEN,BUN 21 mg/dL (7-18); CALCIUM 8.7 mg/dL (8.6-10.2); CARBON DIOXIDE,CO2 27 mmol/L (21-32); CHLORIDE,CL 112 mmol/L (100-110); CREATININE 0.7 mg/dL (0.55-1.02); ESTIMATED GFR 109 mL/min (>60); GLUCOSE RANDOM 97 mg/dL (80-116); POTASSIUM,K 4.3 mmol/L (3.5-5.3); SODIUM,NA 145 mmol/L (135-145)
[2024-10-09 15:52] LABS: A/G RATIO 1.1; ALANINE AMINOTRANSFERASE,ALT 33 U/L (12-36); ALBUMIN 3.1 g/dL (3.5-5.2); ALKALINE PHOSPHATASE 129 IU/L (56-112); ASPARTATE AMNIOTRANSFERASE,AST 14 IU/L (5-25); BILIRUBIN TOTAL 0.3 mg/dL (0.1-1.3)
[2024-10-09 19:09] VITALS: BP 128/75; PULSE 70
== END 2024-10-09 16:10 | disposition home or self-care (01) ==
LOC: FB.ED 14:50
DX: M51.16 Intervertebral disc disorders with radiculopathy, lumbar region (principal); J44.89 Other specified chronic obstructive pulmonary disease; E66.9 Obesity, unspecified; Z86.16 Personal history of COVID-19; Z90.49 Acquired absence of other specified parts of digestive tract; Z88.5 Allergy status to narcotic agent; Z88.6 Allergy status to analgesic agent; Z88.8 Allergy status to other drugs, medicaments and biological substances; Z79.51 Long term (current) use of inhaled steroids; Z79.891 Long term (current) use of opiate analgesic; Z79.899 Other long term (current) drug therapy; Z68.41 Body mass index [BMI] 40.0-44.9, adult
CPT/HCPCS: 36415; 70450; 80053; 84484; 85025; 99284

== ENCOUNTER 2024-11-09 08:44 | Emergency (ER) | payer MEDICARE, MEDICAID ==
[2024-11-09 09:05] VITALS: BP 134/84; PULSE 97
[2024-11-09 09:12] LABS: BASOPHILS PERCENT AUTO 0.6 % (0.2-1.5); EOSINOPHILS ABSOLUTE AUTO 0.1 x10-3/uL (0.0-0.8); EOSINOPHILS PERCENT AUTO 0.7 % (0.6-8.1); HEMATOCRIT 47.1 % (34.2-48.2); HEMOGLOBIN 15.8 g/dL (11.4-15.5); LYMPHOCYTES ABSOLUTE AUTO 1.4 x10-3/uL (1.0-4.4); LYMPHOCYTES PERCENT AUTO 19.1 % (18.4-52.1); MEAN CORPUSCULAR HEMOGLOBIN 29.7 pg (23.9-33.9); MEAN CORPUSCULAR HGB CONC 33.4 g/dL (31.9-34.8); MEAN CORPUSCULAR VOLUME 88.7 fL (76.7-100.5); MONOCYTES ABSOLUTE AUTO 0.5 x10-3/uL (0.3-1.0); MONOCYTES PERCENT AUTO 6.3 % (4.4-15.7); NEUTROPHILS ABSOLUTE AUTO 5.2 x10-3/uL (1.5-6.3); NEUTROPHILS PERCENT AUTO 73.3 % (30.8-76.2); PLATELET COUNT,PLT 259 x10(3)uL (151-488); RED BLOOD CELL COUNT 5.31 x10(6)uL (3.60-5.20); RED CELL DISTRIBUTION WIDTH 12.9 % (12.3-16.5); WHITE BLOOD CELL COUNT,WBC 7.2 x10-3/uL (3.0-10.3)
[2024-11-09 09:15] LABS: BLOOD UREA NITROGEN,BUN 13 mg/dL (7-18); BUN/CREATININE RATIO 16.3 (9-20); CALCIUM 9.3 mg/dL (8.6-10.2); CARBON DIOXIDE,CO2 26 mmol/L (21-32); CHLORIDE,CL 106 mmol/L (100-110); CREATININE 0.8 mg/dL (0.55-1.02); ESTIMATED GFR 92 mL/min (>60); GLUCOSE RANDOM 117 mg/dL (80-116); POTASSIUM,K 4.1 mmol/L (3.5-5.3); SODIUM,NA 142 mmol/L (135-145)
[2024-11-09 09:21] LABS: A/G RATIO 1.1; ALANINE AMINOTRANSFERASE,ALT 29 U/L (12-36); ALBUMIN 3.5 g/dL (3.5-5.2); ALKALINE PHOSPHATASE 136 IU/L (56-112); ASPARTATE AMNIOTRANSFERASE,AST 12 IU/L (5-25); BILIRUBIN TOTAL 0.2 mg/dL (0.1-1.3); PROTEIN TOTAL,TP 6.6 g/dL (6.0-8.0)
[2024-11-09 09:27] LABS: BILIRUBIN,URINE NEGATIVE (NEGATIVE); GLUCOSE,URINE NORMAL (NORMAL); KETONES,URINE NEGATIVE (NEGATIVE); LEUKOCYTE ESTERASE,URINE NEGATIVE (NEGATIVE); NITRITE,URINE NEGATIVE (NEGATIVE); OCCULT BLOOD,URINE NEGATIVE (NEGATIVE); PROTEIN,URINE NEGATIVE (NEGATIVE); UROBILINOGEN,URINE NORMAL (NEGATIVE)
[2024-11-09 09:32] LABS: APPEARANCE,URINE SLIGHTLY CLOUDY (CLEAR); COLOR,URINE YELLOW (YELLOW)
[2024-11-09] MEDS: Sodium Chloride 0.9% 1,000 ML IV SCH (09:37)
[2024-11-09] MEDS: Ketorolac 30 MG/ML SDV IVPUSH ONE (10:20)
== END 2024-11-09 12:15 | disposition home or self-care (01) ==
LOC: FB.ED 08:44
DX: G35 Multiple sclerosis (principal); R40.4 Transient alteration of awareness; R51.9 Headache, unspecified; J45.909 Unspecified asthma, uncomplicated; E66.9 Obesity, unspecified; F17.210 Nicotine dependence, cigarettes, uncomplicated; Z90.49 Acquired absence of other specified parts of digestive tract; Z86.16 Personal history of COVID-19; Z88.5 Allergy status to narcotic agent; Z88.6 Allergy status to analgesic agent; Z88.8 Allergy status to other drugs, medicaments and biological substances; Z79.899 Other long term (current) drug therapy
CPT/HCPCS: 36415; 70450; 80053; 81003; 83605; 84484; 85025; 86140; 93005; 96361; 96374; 99285; J1885; J7030

== ENCOUNTER 2024-11-29 14:39 | Emergency (ER) | payer MEDICARE, MEDICAID, OTHER ==
[2024-11-29] MEDS ORDERED: Cyclobenzaprine 10 MG Tab PO ONE (14:40)
[2024-11-29 15:05] VITALS: BP 120/92; PULSE 61
[2024-11-29] MEDS: Ketorolac 30 MG/ML SDV IVPUSH ONE (15:12)
[2024-11-29] MEDS: Iopamidol 755 Mg/ML 100 ML Bottle IV SCH (15:55)
[2024-11-29] MEDS: Acetaminophen/HYDROcodone 325-5 MG Tab PO ONE (17:04)
[2024-11-29] MEDS: LORazepam 2 MG/ML SDV IVPUSH ONE (17:05)
== END 2024-11-29 18:04 | disposition home or self-care (01) ==
LOC: FB.ED 14:39
DX: M54.50 Low back pain, unspecified (principal); G89.29 Other chronic pain; J45.909 Unspecified asthma, uncomplicated; E66.9 Obesity, unspecified; Z86.16 Personal history of COVID-19; Z90.49 Acquired absence of other specified parts of digestive tract; Z88.5 Allergy status to narcotic agent; Z88.6 Allergy status to analgesic agent; Z88.8 Allergy status to other drugs, medicaments and biological substances; Z79.899 Other long term (current) drug therapy; V89.2XXA Person injured in unspecified motor-vehicle accident, traffic, initial encounter
CPT/HCPCS: 74177; 96374; 96375; 99284; A9270; J1885; J2060; Q9967

== ENCOUNTER 2025-01-06 16:38 | Emergency (ER) | payer MEDICARE, MEDICAID ==
[2025-01-06] MEDS: Ketorolac 30 MG/ML SDV IM STA (17:34)
[2025-01-06] MEDS: Acetaminophen/oxyCODONE 325-5 MG Tab PO STA (17:35)
[2025-01-06 18:44] VITALS: BP 122/77; PULSE 86
== END 2025-01-06 18:35 | disposition home or self-care (01) ==
LOC: FB.ED 16:38
DX: M25.561 Pain in right knee (principal); F17.210 Nicotine dependence, cigarettes, uncomplicated; Z88.5 Allergy status to narcotic agent; Z88.6 Allergy status to analgesic agent; Z88.1 Allergy status to other antibiotic agents; Z88.8 Allergy status to other drugs, medicaments and biological substances; Z79.899 Other long term (current) drug therapy; Z86.16 Personal history of COVID-19; W01.0XXA Fall on same level from slipping, tripping and stumbling without subsequent striking against object, initial encounter; Y93.89 Activity, other specified
CPT/HCPCS: 96372; 99283; A9270-GY; J1885

== ENCOUNTER 2025-04-19 12:22 | Emergency (ER) | payer MEDICAID, MEDICARE ==
[2025-04-19] MEDS ORDERED: Sodium Chloride 0.9% 10 ML Syringe FLUSH PRN (12:34)
[2025-04-19 12:58] LABS: BASOPHILS ABSOLUTE AUTO 0.1 x10-3/uL (0.0-0.1); BASOPHILS PERCENT AUTO 0.6 % (0.2-1.5); EOSINOPHILS ABSOLUTE AUTO 0.1 x10-3/uL (0.0-0.8); EOSINOPHILS PERCENT AUTO 0.6 % (0.6-8.1); HEMATOCRIT 44.2 % (34.2-48.2); HEMOGLOBIN 14.8 g/dL (11.4-15.5); LYMPHOCYTES ABSOLUTE AUTO 2.1 x10-3/uL (1.0-4.4); LYMPHOCYTES PERCENT AUTO 17.9 % (18.4-52.1); MEAN CORPUSCULAR HEMOGLOBIN 29.2 pg (23.9-33.9); MEAN CORPUSCULAR HGB CONC 33.5 g/dL (31.9-34.8); MEAN CORPUSCULAR VOLUME 87.1 fL (76.7-100.5); MONOCYTES ABSOLUTE AUTO 0.6 x10-3/uL (0.3-1.0); MONOCYTES PERCENT AUTO 5.5 % (4.4-15.7); NEUTROPHILS ABSOLUTE AUTO 8.9 x10-3/uL (1.5-6.3); NEUTROPHILS PERCENT AUTO 75.4 % (30.8-76.2); PLATELET COUNT,PLT 248 x10(3)uL (151-488); RED BLOOD CELL COUNT 5.08 x10(6)uL (3.60-5.20); RED CELL DISTRIBUTION WIDTH 13.1 % (12.3-16.5); WHITE BLOOD CELL COUNT,WBC 11.7 x10-3/uL (3.0-10.3)
[2025-04-19 13:01] LABS: BLOOD UREA NITROGEN,BUN 9 mg/dL (7-18); BUN/CREATININE RATIO 12.9 (9-20); CALCIUM 8.9 mg/dL (8.6-10.2); CARBON DIOXIDE,CO2 29 mmol/L (21-32); CHLORIDE,CL 104 mmol/L (100-110); CREATININE 0.7 mg/dL (0.55-1.02); ESTIMATED GFR 108 mL/min (>60); GLUCOSE RANDOM 132 mg/dL (80-116); POTASSIUM,K 3.9 mmol/L (3.5-5.3); SODIUM,NA 138 mmol/L (135-145)
[2025-04-19 13:06] LABS: A/G RATIO 0.9; ALANINE AMINOTRANSFERASE,ALT 23 U/L (12-36); ALBUMIN 3.1 g/dL (3.5-5.2); ALKALINE PHOSPHATASE 128 IU/L (56-112); ASPARTATE AMNIOTRANSFERASE,AST 13 IU/L (5-25); BILIRUBIN TOTAL 0.2 mg/dL (0.1-1.3); PROTEIN TOTAL,TP 6.5 g/dL (6.0-8.0)
[2025-04-19] MEDS ORDERED: cefTRIAXone 1 GM Vial IVPUSH ONE (13:35)
[2025-04-19] MEDS: Doxycycline 100 MG Tab PO ONE (13:51)
[2025-04-19 14:36] VITALS: BP 136/76; PULSE 95
== END 2025-04-19 14:28 | disposition home or self-care (01) ==
LOC: FB.ED 12:22
DX: L03.115 Cellulitis of right lower limb (principal); J45.909 Unspecified asthma, uncomplicated; K21.9 Gastro-esophageal reflux disease without esophagitis; E66.9 Obesity, unspecified; Z86.16 Personal history of COVID-19; Z90.49 Acquired absence of other specified parts of digestive tract; F17.210 Nicotine dependence, cigarettes, uncomplicated; F17.290 Nicotine dependence, other tobacco product, uncomplicated; Z79.899 Other long term (current) drug therapy; Z88.5 Allergy status to narcotic agent; Z88.8 Allergy status to other drugs, medicaments and biological substances
CPT/HCPCS: 36415; 80053; 83605; 85025; 85379; 86140; 99283; 99284; A9270-GY

== ENCOUNTER 2025-08-31 14:45 | Emergency (ER) | payer MEDICARE, MEDICAID ==
[2025-08-31] MEDS ORDERED: Sodium Chloride 0.9% 10 ML Syringe FLUSH PRN (14:49)
[2025-08-31 15:22] LABS: BASOPHILS ABSOLUTE AUTO 0.0 x10-3/uL (0.0-0.1); BASOPHILS PERCENT AUTO 0.5 % (0.2-1.5); EOSINOPHILS ABSOLUTE AUTO 0.1 x10-3/uL (0.0-0.8); EOSINOPHILS PERCENT AUTO 0.8 % (0.6-8.1); LYMPHOCYTES ABSOLUTE AUTO 2.1 x10-3/uL (1.0-4.4); LYMPHOCYTES PERCENT AUTO 24.9 % (18.4-52.1); MEAN PLATELET VOLUME 7.5 fL (7.1-12.4); MONOCYTES ABSOLUTE AUTO 0.5 x10-3/uL (0.3-1.0); MONOCYTES PERCENT AUTO 6.6 % (4.4-15.7); NEUTROPHILS ABSOLUTE AUTO 5.6 x10-3/uL (1.5-6.3); NEUTROPHILS PERCENT AUTO 67.2 % (30.8-76.2); PLATELET COUNT,PLT 282 x10(3)uL (151-488); RED BLOOD CELL COUNT 5.04 x10(6)uL (3.60-5.20); RED CELL DISTRIBUTION WIDTH 13.4 % (12.3-16.5); WHITE BLOOD CELL COUNT,WBC 8.3 x10-3/uL (3.0-10.3)
[2025-08-31 15:29] LABS: BLOOD UREA NITROGEN,BUN 12 mg/dL (7-18); CARBON DIOXIDE,CO2 27 mmol/L (21-32); CHLORIDE,CL 106 mmol/L (100-110); CREATININE 0.7 mg/dL (0.55-1.02); EST CRCL DRUG DOSING (CG) 75.78 mL/min; ESTIMATED GFR 108 mL/min (>60); GLUCOSE RANDOM 94 mg/dL (80-116); POTASSIUM,K 3.7 mmol/L (3.5-5.3); SODIUM,NA 142 mmol/L (135-145)
[2025-08-31] MEDS: Ketorolac 30 MG/ML SDV IVPUSH ONE (15:31)
[2025-08-31 15:34] LABS: INR 0.9 (1.00-1.24); PTT,PARTIAL THROMBOPLSTIN TIME 27.5 SECONDS (24.4-33.2)
[2025-08-31 15:35] LABS: A/G RATIO 0.9; ALANINE AMINOTRANSFERASE,ALT 24 U/L (12-36); ASPARTATE AMNIOTRANSFERASE,AST 14 IU/L (5-25); BILIRUBIN TOTAL 0.3 mg/dL (0.1-1.3); PROTEIN TOTAL,TP 7.0 g/dL (6.0-8.0)
[2025-08-31 16:04] LABS: GLUCOSE,URINE NORMAL (NORMAL); OCCULT BLOOD,URINE NEGATIVE (NEGATIVE)
[2025-08-31 16:10] LABS: APPEARANCE,URINE CLEAR (CLEAR)
[2025-08-31 16:56] VITALS: BP 107/60; PULSE 61
== END 2025-08-31 16:20 | disposition home or self-care (01) ==
LOC: FB.ED 14:45
DX: R07.2 Precordial pain (principal); G89.29 Other chronic pain; R51.9 Headache, unspecified; K21.9 Gastro-esophageal reflux disease without esophagitis; E66.9 Obesity, unspecified; Z87.891 Personal history of nicotine dependence; Z68.38 Body mass index [BMI] 38.0-38.9, adult
CPT/HCPCS: 36415; 70450; 70450-26; 71045; 71045-26; 80053; 81003; 82947; 84484; 85025; 85610; 85730; 93005; 96374; 99285-25; J1885